=== PATIENT | male | born 1995 | race Hispanic/Latino ===

== ENCOUNTER 2018-11-07 18:47 | Emergency (ER) | payer BC, OTHER ==
--- NOTE | 2018-11-07 20:44 | EDPHYS ---
Physician Documentation [facility] Name: Jcarlos Arguelles Age: 23 yrs Sex: Male : 1995 Arrival Date: 11/07/2018 Time: 18:50 Bed 11 Private MD: ED Physician Marin Hopkins HPI: 11/08 06:32 This 23 yrs old Male presents to ER via Ambulatory with complaints of High tw4 Blood Pressure. 06:32 The patient has elevated blood pressure and discovered this at home, with a home tw4 device. Onset: The symptoms/episode began/occurred today. Associated signs and symptoms: Pertinent positives: headache, lightheadedness. Severity of symptoms: At its worst the blood pressure was moderate, just prior to arrival. The patient has not experienced similar symptoms in the past. Historical: - Allergies: 11/07 19:23 Morphine; sensitive; ak1 - Home Meds: 19:23 None [Active]; ak1 - PMHx: 19:23 None; ak1 - PSHx: 19:23 Cholecystectomy; gastric sleave; ak1 - Immunization history:: Adult Immunizations unknown. - Social history:: Smoking status: Patient uses tobacco products, denies chronic smoking, but will smoke occasionally. - Ebola Screening: : No symptoms or risks identified at this time. ROS: 11/08 06:32 Constitutional: Negative for fever, chills, and weight loss, Eyes: Negative for injury, tw4 pain, redness, and discharge, Cardiovascular: Negative for chest pain, palpitations, and edema, Respiratory: Negative for shortness of breath, cough, wheezing, and pleuritic chest pain, Abdomen/GI: Negative for abdominal pain, nausea, vomiting, diarrhea, and constipation, Back: Negative for injury and pain, MS/Extremity: Negative for injury and deformity, Skin: Negative for injury, rash, and discoloration. Exam: 06:32 Constitutional: This is a well developed, well nourished patient who is awake, alert, tw4 and in no acute distress. Head/Face: Normocephalic, atraumatic. Chest/axilla: Normal chest wall appearance and motion. Nontender with no deformity. No lesions are appreciated. Cardiovascular: Regular rate and rhythm with a normal S1 and S2. No gallops, murmurs, or rubs. Normal PMI, no JVD. No pulse deficits. Respiratory: Lungs have equal breath sounds bilaterally, clear to auscultation and percussion. No rales, rhonchi or wheezes noted. No increased work of breathing, no retractions or nasal flaring. Abdomen/GI: Soft, non-tender, with normal bowel sounds. No distension or tympany. No guarding or rebound. No evidence of tenderness throughout. Back: No spinal tenderness. No costovertebral tenderness. Full range of motion. MS/ Extremity: Pulses equal, no cyanosis. Neurovascular intact. Full, normal range of motion. Neuro: Awake and alert, GCS 15, oriented to person, place, time, and situation. Cranial nerves II-XII grossly intact. Motor strength 5/5 in all extremities. Sensory grossly intact. Cerebellar exam normal. Normal gait. Vital Signs: 11/07 19:20 BP 159 / 96; Pulse 69; Resp 18; Temp 97.8; Pulse Ox 100% on R/A; Weight 126.55 kg (R); ak1 Height 6 ft. 0 in. (182.88 cm) (R); Pain 0/10; 20:34 BP 144 / 69; Pulse 66; Resp 16 S; jd3 19:20 Body Mass Index 37.84 (126.55 kg, 182.88 cm) ak1 MDM: 20:14 Patient medically screened. tw4 11/08 06:34 Differential diagnosis: hypertensive crisis, Malignant HTN. Data reviewed: vital signs, tw4 nurses notes. Data interpreted: Pulse oximetry: Interpretation: normal. Counseling: I had a detailed discussion with the patient and/or guardian regarding: the historical points, exam findings, and any diagnostic results supporting the discharge/admit diagnosis, the presence of at least one elevated blood pressure reading (>120/80) during this emergency department visit. Special discussion: I discussed with the patient/guardian in detail that at this point there is no indication for admission to the hospital. It is understood, however, that if the symptoms persist or worsen the patient needs to return immediately for re-evaluation. Administered Medications: No medications were administered Disposition: 11/07/18 20:44 Discharged to Home. Impression: Hypertension to be determined. - Condition is Stable. - Discharge Instructions: Hypertension, [id number], Managing Your Hypertension. - Medication Reconciliation Form, Thank You Letter, Antibiotic Education, Prescription Opioid Use form. - Follow up: Private Physician; When: Upon discharge from the Emergency Department; Reason: If symptoms return, Recheck today's complaints, Continuance of care. Follow up: Trino Saucedo MD; When: Upon discharge from the Emergency Department; Reason: If symptoms return, Recheck today's complaints, Continuance of care. Follow up: Channing Montana MD; When: Upon discharge from the Emergency Department; Reason: If symptoms return, Recheck today's complaints, Continuance of care. Follow up: Nabeel Cosme MD; When: Upon discharge from the Emergency Department; Reason: If symptoms return, Recheck today's complaints, Continuance of care. Follow up: Macy Moore DO; When: Upon discharge from the Emergency Department; Reason: If symptoms return, Recheck today's complaints, Continuance of care. Follow up: Alfred Oh MD; When: Upon discharge from the Emergency Department; Reason: If symptoms return, Recheck today's complaints, Continuance of care. Follow up: Ana Rosa Mcmanus MD; When: Upon discharge from the Emergency Department; Reason: If symptoms return, Recheck today's complaints, Continuance of care. Follow up: Jose Antonio Holliday MD; When: Upon discharge from the Emergency Department; Reason: If symptoms return, Recheck today's complaints, Continuance of care. - Problem is new. - Symptoms have improved. Signatures: Annabelle Cook RN RN ak1 Leonidas Storm RN RN jd3 Marin Hopkins MD MD tw4 Corrections: (The following items were deleted from the chart) 11/07 20:54 20:44 11/07/2018 20:44 Discharged to Home. Impression: Hypertension to be determined. jd3 Condition is Stable. Forms are Medication Reconciliation Form, Thank You Letter, Antibiotic Education, Prescription Opioid Use. Follow up: Private Physician; When: Upon discharge from the Emergency Department; Reason: If symptoms return, Recheck today's complaints, Continuance of care. Follow up: Trino Saucedo; When: Upon discharge from the Emergency Department; Reason: If symptoms return, Recheck today's complaints, Continuance of care. Follow up: Channing Montana; When: Upon discharge from the Emergency Department; Reason: If symptoms return, Recheck today's complaints, Continuance of care. Follow up: Nabeel Cosme; When: Upon discharge from the Emergency Department; Reason: If symptoms return, Recheck today's complaints, Continuance of care. Follow up: Macy Moore; When: Upon discharge from the Emergency Department; Reason: If symptoms return, Recheck today's complaints, Continuance of care. Follow up: Alfred Oh; When: Upon discharge from the Emergency Department; Reason: If symptoms return, Recheck today's complaints, Continuance of care. Follow up: Ana Rosa Mcmanus; When: Upon discharge from the Emergency Department; Reason: If symptoms return, Recheck today's complaints, Continuance of care. Follow up: Jose Antonio Holliday; When: Upon discharge from the Emergency Department; Reason: If symptoms return, Recheck today's complaints, Continuance of care. Problem is new. Symptoms have improved. tw4
--- NOTE | 2018-11-07 20:44 | ER ---
Nurse's Notes [facility] Name: Jcarlos Arguelles Age: 23 yrs Sex: Male : 1995 Arrival Date: 11/07/2018 Time: 18:50 Bed 11 Private MD: Diagnosis: Hypertension to be determined Presentation: 11/07 19:21 Presenting complaint: Patient states: light headed and dizzy since last Wednesday. pt ak1 stated he has been keeping a log of his blood pressure while at work and it has been elevated daily. pt denies any pain. Transition of care: patient was not received from another setting of care. Onset of symptoms is unknown. Risk Assessment: Do you want to hurt yourself or someone else? Patient reports no desire to harm self or others. Initial Sepsis Screen: Does the patient meet any 2 criteria? No. Patient's initial sepsis screen is negative. Does the patient have a suspected source of infection? No. Patient's initial sepsis screen is negative. Care prior to arrival: None. 19:21 Method Of Arrival: Ambulatory ak1 19:21 Acuity: ANNA 3 ak1 Triage Assessment: 19:23 General: Appears in no apparent distress. Behavior is calm, cooperative, appropriate ak1 for age. Pain: Denies pain. Neuro: Level of Consciousness is awake, alert, obeys commands, Oriented to person, place, time, situation, Appropriate for age Summer Associate are equal bilaterally Moves all extremities. Gait is steady, Speech is normal, Facial symmetry appears normal. Historical: - Allergies: 19:23 Morphine; sensitive; ak1 - Home Meds: 19:23 None [Active]; ak1 - PMHx: 19:23 None; ak1 - PSHx: 19:23 Cholecystectomy; gastric sleave; ak1 - Immunization history:: Adult Immunizations unknown. - Social history:: Smoking status: Patient uses tobacco products, denies chronic smoking, but will smoke occasionally. - Ebola Screening: : No symptoms or risks identified at this time. Screenin:24 Abuse screen: Denies threats or abuse. Denies injuries from another. Nutritional ak1 screening: No deficits noted. Tuberculosis screening: No symptoms or risk factors identified. Fall Risk None identified. Assessment: 20:33 General: Appears in no apparent distress. uncomfortable, Behavior is calm, cooperative, jd3 appropriate for age, Reports fatigue for 1-2 days, high blood pressure. Pain: Complains of pain in head Quality of pain is described as aching, pressure. Neuro: Level of Consciousness is awake, alert, obeys commands, Oriented to person, place, time, situation. Cardiovascular: Denies chest pain, Capillary refill < 3 seconds Patient's skin is warm and dry. Respiratory: Airway is patent Respiratory effort is even, unlabored, Respiratory pattern is regular, symmetrical, Denies cough, shortness of breath. GI: No signs and/or symptoms were reported involving the gastrointestinal system. : No signs and/or symptoms were reported regarding the genitourinary system. EENT: No signs and/or symptoms were reported regarding the EENT system. Derm: Skin is intact, Skin is dry, Skin is normal, Skin temperature is warm. Musculoskeletal: Circulation, motion, and sensation intact. Range of motion: intact in all extremities. 20:53 Reassessment: Patient appears in no apparent distress at this time. No changes from jd3 previously documented assessment. Patient and/or family updated on plan of care and expected duration. Pain level reassessed. Patient is alert, oriented x 3, equal unlabored respirations, skin warm/dry/pink. reported understanding of discharge instructions. Vital Signs: 19:20 BP 159 / 96; Pulse 69; Resp 18; Temp 97.8; Pulse Ox 100% on R/A; Weight 126.55 kg (R); ak1 Height 6 ft. 0 in. (182.88 cm) (R); Pain 0/10; 20:34 BP 144 / 69; Pulse 66; Resp 16 S; jd3 19:20 Body Mass Index 37.84 (126.55 kg, 182.88 cm) ak1 ED Course: 18:50 Patient arrived in ED. as 19:20 Arm band placed on Patient placed in waiting room, Patient notified of wait time. ak1 19:22 Triage completed. ak1 19:24 Patient has correct armband on for positive identification. ak1 20:14 Marin Hopkins MD is Attending Physician. tw4 20:32 Leonidas Storm RN is Primary Nurse. jd3 20:43 Trino Saucedo MD is Referral Physician. tw4 20:43 Channing Montana MD is Referral Physician. tw4 20:43 Nabeel Cosme MD is Referral Physician. tw4 20:43 Macy Moore DO is Referral Physician. tw4 20:43 Alfred Oh MD is Referral Physician. tw4 20:44 Ana Rosa Mcmanus MD is Referral Physician. tw4 20:44 Jose Antonio Holliday MD is Referral Physician. tw4 20:52 No provider procedures requiring assistance completed. Patient did not have IV access jd3 during this emergency room visit. Administered Medications: No medications were administered Outcome: 20:44 Discharge ordered by MD. tw4 20:52 Discharged to home ambulatory. jd3 20:52 Condition: stable 20:52 Discharge instructions given to patient, Instructed on discharge instructions, follow up and referral plans. Demonstrated understanding of instructions, follow-up care. 20:54 Patient left the ED. jd3 Signatures: Jeannette Gagnon Amber, RN RN ak1 Leonidas Storm RN RN jd3 Marin Hopkins MD MD tw4 Corrections: (The following items were deleted from the chart) 20:54 20:34 BP 144 / 69; jd3 jd3
[2018-11-07 22:26] VITALS: TEMP 97.8; O2SAT 100
[2018-11-07 22:27] VITALS: BP 144/69
== END 2018-11-07 20:54 | disposition home or self-care (01) ==
LOC: ER 18:47
DX: I10 Essential (primary) hypertension (principal); Z72.0 Tobacco use; Z88.5 Allergy status to narcotic agent
CPT/HCPCS: 99281